=== PATIENT | male | born 1970 | race Caucasian/White ===

== ENCOUNTER 2017-06-30 20:39 | Emergency (ER) | payer OTHER ==
[~2017-06-30] VITALS: Ht 172.7 cm; Wt 91.0 kg
[2017-06-30 20:42] VITALS: BP 131/73; PULSE 96; RESP 15; TEMP 99.2; O2SAT 99
--- NOTE | 2017-06-30 21:04 | PD ---
HPI Chief Complaint: Cold / Flu Symptoms Time Seen by Provider: 21:04 Travel History International Travel<30 days: No Contact w/Intl Traveler<30days: No Traveled to known affect area: No History of Present Illness HPI 46-year-old male came to the emergency room with history of cough, URI symptoms and just not feeling well for past couple weeks. Patient is from [place] and is visiting his parents here. He just flew in yesterday. Since he did not look better to the family they asked them to come to the emergency room. He's been getting some chills but otherwise his vital signs are stable. Patient says that he took a course of Z-Jake after which he felt like his symptoms were getting better but then he started feeling worse again. This time his primary care started him on Augmentin. Patient says that he has taken 6 days of Augmentin but has come to the emergency room since he is not feeling any better. He is otherwise a healthy person. After he was sick his was sick for a few days but she recovered. He has 2 children at home who have been frequently sick because they go to school. Patient is not a smoker. Cough is mostly dry. [facility] Past Medical History Narrative Medical List of his past medical, surgical, social and family history reviewed from the nursing note. Immunizations Current: Yes Tetanus Vaccination: Unknown Influenza Vaccination: No Social History Alcohol Use: Yes ([facility]) Tobacco Use: No Substance Use: No Allergies-Medications (Allergen,Severity, Reaction): Coded Allergies: No Known Allergies (Verified Allergy, Unknown, 06/30/17) Comments No known drug allergies. Reported Meds & Prescriptions Reported Meds & Active Scripts Active Levaquin (Levofloxacin) 500 Mg Tablet 500 Mg PO DAILY 10 Days Narrative Medication List of his home medications reviewed from the nursing note. Review of Systems Except as stated in HPI: all other systems reviewed are Neg Physical Exam Narrative GENERAL: Awake, alert, mild used SKIN: Focused skin assessment warm/dry. HEAD: Atraumatic. Normocephalic. EYES: Pupils equal and round. No scleral icterus. No injection or drainage. ENT: No nasal bleeding or discharge. Mucous membranes pink and moist. Normal TM and pharynx. Normal nasal mucosa. NECK: Trachea midline. No JVD. CARDIOVASCULAR: Regular rate and rhythm. No murmur appreciated. RESPIRATORY: No accessory muscle use. Clear to auscultation. Breath sounds equal bilaterally. GASTROINTESTINAL: Abdomen soft, non-tender, nondistended. Hepatic and splenic margins not palpable. MUSCULOSKELETAL: No obvious deformities. No clubbing. No cyanosis. No edema. NEUROLOGICAL: Awake and alert. No obvious cranial nerve deficits. Motor grossly within normal limits. Normal speech. PSYCHIATRIC: Appropriate mood and affect; insight and judgment normal. Data Data Last Documented VS Vital Signs Date Time Temp Pulse Resp B/P (MAP) Pulse Ox O2 Delivery O2 Flow Rate FiO2 06/30/17 23:38 06/30/17 20:42 99.2 96 15 99 Room Air Orders Orders Chest, Pa & Lat (06/30/17 ) Levofloxacin (Levaquin) (06/30/17 23:15) [facility] Medical Decision Making Medical Screen Exam Complete: Yes Emergency Medical Condition: Yes Medical Record Reviewed: Yes Differential Diagnosis Pneumonia, viral illness, environmental allergy Narrative Course 11:16 PM chest x-ray that was done although read negative when I looked at the lateral x-ray there seem to be significant density in the retrocardiac area. Given the symptom I would treat him with Levaquin. Patient will get the first dose here and a prescription to go home with. I explained this to the patient and answered all his questions to the best of my ability. Procedures EKG Prior to Arrival: No Diagnosis Primary Impression: Pneumonia Qualified Codes: J18.1 - Lobar pneumonia, unspecified organism Referrals: Primary Care Physician Additional Instructions: Please return to the ER if the condition worsens or any other new concerns. This will be her third antibiotic you are heavily recommended to start taking probiotics in addition which she should be able to get [id number]. Follow -up with your primary care upon completion of the course. Med/Other Pt SpecificInfo: Prescription(s) given Scripts Levofloxacin (Levaquin) 500 Mg Tablet 500 MG PO DAILY for Infection for 10 Days, TAB 0 Refills Prov: Giuseppe Griffith MD 06/30/17 Disposition: 01 DISCHARGE HOME Condition: Stable Giuseppe Griffith MD Jun 30, 2017 21:04
--- NOTE | 2017-06-30 21:51 | RADRPT ---
EXAM DATE/TIME: 06/30/2017 21:41 [facility] COMPARISON: No previous studies available for comparison. INDICATIONS : Cough , fever and flu symptoms. MEDICAL HISTORY : None. SURGICAL HISTORY : None. ENCOUNTER: Initial ACUITY: 3 weeks . PAIN SCORE: 5/10 LOCATION: Bilateral upper chest FINDINGS: PA and lateral views of the chest demonstrate the lungs to be symmetrically aerated without evidence of mass, infiltrate or effusion. The cardiomediastinal contours are unremarkable. There is a mild co mpression deformity involving a lower thoracic vertebral body of indeterminate age. Clinical correlat ion is recommended. CONCLUSION: 1. No acute cardiopulmonary disease. 2. Mild compression deformity involving a lower thoracic vertebral body of indeterminate age. Clinica l correlation is recommended. Alex Resendiz MD on June 30, 2017 at 21:48 Board Certified Radiologist. This report was verified electronically.
[2017-06-30] MEDS ORDERED: LEVA500T20 PO (23:11)
[2017-06-30] MEDS ORDERED: LEVOFLOXACIN 500 MG TAB PO ONE (23:15)
== END 2017-06-30 23:41 | disposition home or self-care (01) ==
LOC: NEPD 20:39
DX: J18.1 Lobar pneumonia, unspecified organism (principal)
CPT/HCPCS: 71020; 99283